=== PATIENT | male | born 1985 | race Caucasian/White ===

== ENCOUNTER 2019-04-11 08:33 | Emergency (ER) | payer BC, OTHER ==
[~2019-04-11] VITALS: Ht 188 cm; Wt 100.0 kg
[2019-04-11] MEDS ORDERED: meclizine 12.5mg tablet PO ONE (09:05)
[2019-04-11 09:25] LABS: URINE AMPHETAMINE SCREEN POSITIVE (Neg); URINE BARBITUATE SCREEN NEGATIVE (Neg); URINE BENZODIAZEPINES SCREEN NEGATIVE (Neg); URINE CANNABINOID SCREEN POSITIVE (Neg); URINE COCAINE SCREEN NEGATIVE (Neg); URINE METHADONE SCREEN NEGATIVE (Neg); URINE OPIATE SCREEN NEGATIVE (Neg); URINE PHENCYCLIDINE SCREEN NEGATIVE (Neg)
[2019-04-11] MEDS ORDERED: LORA2TAB96 PO (09:52)
[2019-04-11 10:03] VITALS: BP 135/82
== END 2019-04-11 10:08 | disposition home or self-care (01) ==
LOC: ER 08:34
DX: T54.2X1A Toxic effect of corrosive acids and acid-like substances, accidental (unintentional), initial encounter (principal); F15.129 Other stimulant abuse with intoxication, unspecified; F12.129 Cannabis abuse with intoxication, unspecified; F10.99 Alcohol use, unspecified with unspecified alcohol-induced disorder; Z79.899 Other long term (current) drug therapy; Y90.9 Presence of alcohol in blood, level not specified; Y92.89 Other specified places as the place of occurrence of the external cause
CPT/HCPCS: 80305; 93005; 99284; J8597